=== PATIENT | female | born 1955 | race Hispanic/Latino ===

== ENCOUNTER 2021-04-07 13:27 | Inpatient (IN) | payer OTHER ==
[~2021-04-07] VITALS: Ht 170.2 cm; Wt 97.6 kg
[~2021-04-07 13:27] MED LIST: AMOX-429 PO; CIPR-278 PO; LOSA1TAB37 PO
[2021-04-07] MEDS ORDERED: 0.9%NACL 1000ML 1,000 ML IV ONE (14:00)
[2021-04-07] MEDS ORDERED: PHENAZOPYRIDINE HCL 200 MG TABLET PO SCH (14:00)
[2021-04-07] MEDS ORDERED: CEFTRIAXONE 1G VIAL IM SCH (14:00)
[2021-04-07 14:20] LABS: BASOPHILS % (AUTO) 0.4 % (0.0-5.0); EOSINOPHILS % (AUTO) 2.5 % (0.0-8.0); HEMATOCRIT 44.5 % (36-48); LYMPHOCYTES % (AUTO) 38.1 % (21.0-51.0); MEAN CORPUSCULAR HEMOGLOBIN 28.9 pg (27.0-33.0); MEAN CORPUSCULAR HGB CONC 32.4 g/dL (32.0-36.0); MEAN CORPUSCULAR VOLUME 89.2 fL (79-99); NEUTROPHILS % (AUTO) 50.6 % (40.0-77.0); PLATELET COUNT (AUTO) 215 K/uL (130-400); RED BLOOD CELL COUNT(AUTO) 4.99 MIL/uL (4.00-5.50); WHITE BLOOD COUNT (AUTO) 9.4 K/uL (4.8-10.8)
[2021-04-07 14:33] LABS: CREATININE 0.9 mg/dL (0.5-1.5); POTASSIUM 3.8 mmol/L (3.5-5.1)
[2021-04-07 14:38] LABS: ALBUMIN 3.7 g/dL (3.5-5.0); BILIRUBIN,TOTAL 0.4 mg/dL (0.2-1.0); CRP QUANTITATIVE 6.5 mg/L (0.00-9.0); TOTAL PROTEIN, SERUM 7.5 g/dL (6.0-8.3)
[2021-04-07] MEDS: CEFTRIAXONE 1G VIAL IV SCH ×2 (14:47→14:52)
[2021-04-07 14:48] LABS: APPEARANCE,URINE TURBID (CLEAR); BILIRUBIN,URINE NEGATIVE (NEGATIVE); COLOR,URINE RED (YELLOW); GLUCOSE, URINE (UA) NEGATIVE (NEGATIVE); KETONES,URINE NEGATIVE (NEGATIVE); LEUKOCYTE ESTERASE ,URINE NEGATIVE (NEGATIVE); NITRATE,URINE NEGATIVE (NEGATIVE); OCCULT BLOOD,URINE LARGE (NEGATIVE); PROTEIN,URINE >=300 mg/dL (NEGATIVE); UROBILINOGEN,URINE 0.2 mg/dL (0.2-1.0)
[2021-04-07 15:03] LABS: RBC,URINE TNTC /HPF (0-1)
[2021-04-07 15:04] LABS: WBC,URINE 0-1 /HPF (0-1)
[2021-04-07 15:05] LABS: BACTERIA,URINE Rare /HPF (None Seen); SQUAMOUS EPITHELIAL CELL,UR None Seen /HPF (0-2)
[2021-04-07] MEDS ORDERED: ONDANSETRON 4MG INJ IVP ONE (16:00)
[2021-04-07] MEDS ORDERED: MORPHINE 2 MG SYG IVP ONE (16:00)
[2021-04-07] MEDS ORDERED: HYDRALAZINE 20MG/ML VIAL IV PRN (18:30)
[2021-04-07] MEDS ORDERED: ZOLPIDEM TARTRATE 5 MG TAB PO PRN (18:30)
[2021-04-07] MEDS ORDERED: AMLODIPINE 5 MG TAB ONE (19:45)
[2021-04-07] MEDS: FAMOTIDINE 20MG TAB PO SCH (19:57)
[2021-04-07] MEDS: ATORVASTATIN 40 MG TABLET PO SCH (19:57)
[2021-04-07] MEDS: 0.9%NACL 1000ML 1,000 ML IV SCH (19:58)
[2021-04-07] MEDS: MORPHINE 4 MG SYG IM PRN (20:41)
[2021-04-07 23:50] VITALS: BP 108/42
[2021-04-08] MEDS ORDERED: [UNRECOGNIZED DRUG - OTHER] PO (01:09)
[2021-04-08] MEDS ORDERED: PRAV10TA39 PO (01:09)
[2021-04-08] MEDS ORDERED: ARDOSONS (01:09)
[2021-04-08] MEDS ORDERED: LOSA1TAB42 PO (01:09)
[2021-04-08] MEDS: ONDANSETRON 4MG INJ IV PRN (02:03)
[2021-04-08 04:00] VITALS: BP_SYST 108; BP_SYST 111; BP_DIAS 42; BP_DIAS 52
[2021-04-08] MEDS: 0.9%NACL 1000ML 1,000 ML IV SCH ×2 (05:13→14:30)
[2021-04-08 07:02] LABS: CHOLESTEROL 141 mg/dL (<200); HDL CHOLESTEROL 39 mg/dL (35-85); LDL DIRECT 76 mg/dL (0-99); TRIGLYCERIDES 213 mg/dL (30-200)
[2021-04-08] MEDS: AMLODIPINE 5 MG TAB PO SCH (09:00)
[2021-04-08 09:02] VITALS: BP 119/50
[2021-04-08] MEDS: FAMOTIDINE 20MG TAB PO SCH ×2 (10:18→21:29)
[2021-04-08 11:09] VITALS: BP 110/43
[2021-04-08] MEDS: CEFTRIAXONE 1G VIAL IV SCH (14:00)
[2021-04-08 16:24] VITALS: BP 113/54
[2021-04-08 16:25] LABS: HEMATOCRIT 39.3 % (36-48)
[2021-04-08] MEDS: ACETAMINOPHEN 325 MG TAB PO PRN (17:11)
[2021-04-08 20:00] VITALS: BP 118/48
[2021-04-08] MEDS: ATORVASTATIN 40 MG TABLET PO SCH (21:29)
[2021-04-08] MEDS: CEFTRIAXONE 1G VIAL IVP SCH (21:29)
[2021-04-08] MEDS: MORPHINE 4 MG SYG IM PRN (21:36)
[2021-04-08 21:56] LABS: HEMATOCRIT 36.5 % (36-48)
[2021-04-09] VITALS (7 sets, daily range): BP systolic 98–131; BP diastolic 42–65
[2021-04-09] MEDS: 0.9%NACL 1000ML 1,000 ML IV SCH ×4 (00:05→18:56)
[2021-04-09 04:47] LABS: HEMATOCRIT 36.8 % (36-48); MEAN CORPUSCULAR HGB CONC 31.5 g/dL (32.0-36.0); RED CELL DISTRIBUTION WIDTH 13.1 % (11.0-15.5); WHITE BLOOD COUNT (AUTO) 10.2 K/uL (4.8-10.8)
[2021-04-09 04:59] LABS: CREATININE 0.7 mg/dL (0.5-1.5); POTASSIUM 4.7 mmol/L (3.5-5.1)
[2021-04-09] MEDS ORDERED: IOHEXOL 350 MG/ML 100ML INFUS..BTL IV ONE (06:28)
[2021-04-09] MEDS: FAMOTIDINE 20MG TAB PO SCH ×2 (10:30→21:57)
[2021-04-09] MEDS: AMLODIPINE 5 MG TAB PO SCH (10:30)
[2021-04-09] MEDS: MORPHINE 4 MG SYG IV PRN (11:31)
[2021-04-09] MEDS: ONDANSETRON 4MG INJ IV PRN (11:37)
[2021-04-09] MEDS: CEFTRIAXONE 1G VIAL IVP SCH ×2 (21:57→22:06)
[2021-04-09] MEDS: ATORVASTATIN 40 MG TABLET PO SCH (21:57)
[2021-04-10] VITALS (22 sets, daily range): BP systolic 101–162; BP diastolic 43–85
[2021-04-10 04:33] LABS: HEMATOCRIT 36.5 % (36-48); MEAN CORPUSCULAR HGB CONC 32.1 g/dL (32.0-36.0); MEAN CORPUSCULAR VOLUME 90.3 fL (79-99); RED BLOOD CELL COUNT(AUTO) 4.04 MIL/uL (4.00-5.50); RED CELL DISTRIBUTION WIDTH 12.9 % (11.0-15.5); WHITE BLOOD COUNT (AUTO) 8.1 K/uL (4.8-10.8)
[2021-04-10 04:42] LABS: INR 0.97 (0.85-1.15); PROTHROMBIN TIME 10.6 SEC (9.6-11.6)
[2021-04-10 04:43] LABS: PARTIAL THROMBOPLASTIN TIME 25.6 SEC (26.3-35.5)
[2021-04-10 04:49] LABS: CREATININE 0.7 mg/dL (0.5-1.5); POTASSIUM 3.9 mmol/L (3.5-5.1)
[2021-04-10] MEDS: 0.9%NACL 1000ML 1,000 ML IV SCH ×2 (06:31→18:08)
[2021-04-10] MEDS: FAMOTIDINE 20MG TAB PO SCH ×2 (09:00→20:56)
[2021-04-10] MEDS: AMLODIPINE 5 MG TAB PO SCH (09:00)
[2021-04-10] MEDS: MORPHINE 4 MG SYG IV PRN (12:26)
[2021-04-10] MEDS: ONDANSETRON 4MG INJ IV PRN ×2 (12:26→18:42)
[2021-04-10] MEDS ORDERED: LACTATED RINGERS 1000ML 1,000 ML IV ONE (12:51)
[2021-04-10] MEDS ORDERED: PROPOFOL 10 MG/ML 20ML VIAL IV ONE (15:03)
[2021-04-10] MEDS ORDERED: LIDOCAINE PF 100MG/5ML (2%) SYRINGE 5ML ONE (15:03)
[2021-04-10] MEDS ORDERED: FENTANYL CITRATE PF 50 MCG/1 ML 2ML VIAL ONE (15:03)
[2021-04-10] MEDS ORDERED: SUCCINYLCHOLINE 200MG/10ML SYR ONE (15:03)
[2021-04-10] MEDS ORDERED: ROCURONIUM 10MG/1ML SYR 10 MG/ML ML ONE (15:21)
[2021-04-10] MEDS ORDERED: GLYCOPYRROLATE 1 MG/5 ML SYRINGE ONE (15:25)
[2021-04-10] MEDS ORDERED: MEPERIDINE-PF 25 MG/ML SYG ONE (16:11)
[2021-04-10] MEDS ORDERED: HYDROMORPHONE 0.5 MG SYG (0.5MG/0.5ML) IVP PRN (18:30)
[2021-04-10] MEDS ORDERED: OXYBUTYNIN 5 MG TAB.SR.24H PO SCH (20:30)
[2021-04-10] MEDS: ATORVASTATIN 40 MG TABLET PO SCH (20:57)
[2021-04-10] MEDS ORDERED: CEFTRIAXONE 1G VIAL IVP SCH (21:00)
[2021-04-11] MEDS: ACETAMINOPHEN 325 MG TAB PO PRN (02:25)
[2021-04-11] MEDS: 0.9%NACL 1000ML 1,000 ML IV SCH (02:30)
[2021-04-11 03:43] VITALS: BP 126/57
[2021-04-11 04:17] LABS: BASOPHILS % (AUTO) 0.2 % (0.0-5.0); EOSINOPHILS % (AUTO) 3.4 % (0.0-8.0); HEMATOCRIT 32.9 % (36-48); LYMPHOCYTES % (AUTO) 20.9 % (21.0-51.0); MEAN CORPUSCULAR HEMOGLOBIN 28.9 pg (27.0-33.0); MEAN CORPUSCULAR HGB CONC 31.6 g/dL (32.0-36.0); MEAN CORPUSCULAR VOLUME 91.4 fL (79-99); MONOCYTES % (AUTO) 9.4 % (3.0-13.0); NEUTROPHILS % (AUTO) 65.6 % (40.0-77.0); PLATELET COUNT (AUTO) 186 K/uL (130-400); RED CELL DISTRIBUTION WIDTH 12.8 % (11.0-15.5); WHITE BLOOD COUNT (AUTO) 9.4 K/uL (4.8-10.8)
[2021-04-11 04:36] LABS: CREATININE 0.8 mg/dL (0.5-1.5); POTASSIUM 3.9 mmol/L (3.5-5.1)
[2021-04-11 08:00] VITALS: BP 132/39
[2021-04-11] MEDS ORDERED: ZOSYN 3.375GM +NS 50ML IV SCH (11:30)
[2021-04-11] MEDS: FAMOTIDINE 20MG TAB PO SCH ×2 (11:56→20:21)
[2021-04-11] MEDS: ZOSYN 3.375GM+NS 50ML 50 ML IV SCH ×2 (11:56→20:25)
[2021-04-11] MEDS: AMLODIPINE 5 MG TAB PO SCH (11:56)
[2021-04-11 12:03] VITALS: BP 147/42
[2021-04-11 16:00] VITALS: BP 111/60
[2021-04-11] MEDS: OXYBUTYNIN 5 MG TAB.SR.24H PO SCH (17:04)
[2021-04-11] MEDS: ATORVASTATIN 40 MG TABLET PO SCH (20:21)
[2021-04-11 21:20] VITALS: BP 124/65
[2021-04-11 23:47] VITALS: BP 130/57
[2021-04-12] MEDS: ACETAMINOPHEN 325 MG TAB PO PRN (02:31)
[2021-04-12 03:18] VITALS: BP 132/61
[2021-04-12] MEDS: ZOSYN 3.375GM+NS 50ML 50 ML IV SCH ×2 (04:58→12:03)
[2021-04-12 08:00] VITALS: BP 132/73
[2021-04-12] MEDS ORDERED: OXYBUTYNIN 5 MG TAB.SR.24H PO SCH (09:00)
[2021-04-12] MEDS: FAMOTIDINE 20MG TAB PO SCH (09:58)
[2021-04-12] MEDS: OXYBUTYNIN 5 MG TAB.SR.24H PO SCH (09:58)
[2021-04-12] MEDS: AMLODIPINE 5 MG TAB PO SCH (09:58)
[2021-04-12 11:59] VITALS: BP 142/67
[2021-04-12 16:00] VITALS: BP 150/50
== END 2021-04-12 20:00 | disposition home or self-care (01) | DRG 669 ==
LOC: EDH 13:27 → EDHIP 18:28 → OBSVTOIN 18:28 → 3BH 04-08 00:49
PROVIDERS: ADMIT Internal Medicine Pulmonary Disease; ATTEND Internal Medicine Pulmonary Disease
PROC: 0T5B8ZZ Destruction of Bladder, Via Natural or Artificial Opening Endoscopic (ICD-10-PCS; 2021-04-10)
PROC: 0TCB8ZZ Extirpation of Matter from Bladder, Via Natural or Artificial Opening Endoscopic (ICD-10-PCS; 2021-04-10)
PROC: 0TBB8ZX Excision of Bladder, Via Natural or Artificial Opening Endoscopic, Diagnostic (ICD-10-PCS; principal; 2021-04-10 15:27)
DX: N32.89 Other specified disorders of bladder (principal); Z16.12 Extended spectrum beta lactamase (ESBL) resistance; N13.6 Pyonephrosis; K57.90 Diverticulosis of intestine, part unspecified, without perforation or abscess without bleeding; E78.5 Hyperlipidemia, unspecified; N32.3 Diverticulum of bladder; B96.20 Unspecified Escherichia coli [E. coli] as the cause of diseases classified elsewhere; N30.91 Cystitis, unspecified with hematuria; R31.0 Gross hematuria; E78.00 Pure hypercholesterolemia, unspecified; I10 Essential (primary) hypertension; E66.01 Morbid (severe) obesity due to excess calories; Z68.33 Body mass index [BMI] 33.0-33.9, adult; Z90.710 Acquired absence of both cervix and uterus; Z90.49 Acquired absence of other specified parts of digestive tract; Z87.891 Personal history of nicotine dependence; Z79.899 Other long term (current) drug therapy; Z82.49 Family history of ischemic heart disease and other diseases of the circulatory system
CPT/HCPCS: 36415; 74176; 74178; 76775; 80048; 80053; 80061; 81001; 83605; 85014; 85018; 85025; 85027; 85610; 85730; 86140; 86850; 86900; 86901; 87040; 87077; 87088; 87186; 93005; 97039; A4354; G0378; J0330; J0696; J1170; J2001; J2175; J2270; J2405; J2543; J2704; J3010; J3490; J7030; J7120; Q9967

== ENCOUNTER → 2024-06-11 | Outpatient (CLI) | payer OTHER ==
[~2024-06-11] MED LIST changes: -AMOX-429 PO; -CIPR-278 PO; +IOHEXOL-350 75 ML VIAL IV ONE; -LOSA1TAB37 PO; +LOSA1TAB42 PO; +PRAV10TA39 PO
--- NOTE | 2024-06-11 11:26 | HMCIMG ---
CT ABDOMEN/PELVIS W/WO CONTRAS HISTORY: UTI COMPARISON: 04/09/2021 TECHNIQUE: Multiple sequential axial images of the abdomen and pelvis were obtained from the dome of the diaphragm through symphysis pubis. Patient was given 75 cc of Omnipaque through intravenous route. Oral contrast was given. FINDINGS: No pleural effusion is seen bilaterally. There is no evidence of parenchymal disease or pulmonary nodule of the visualized lower lungs. Degenerative changes of the thoracolumbar spine are present. The heart is not enlarged. A small hiatal hernia is seen. Post cholecystectomy changes are seen. The liver, spleen, adrenal glands and pancreas are unremarkable. There is no evidence of hydronephrosis bilaterally. No evidence of renal stone is seen. Fecal material is seen in the colon. There is diverticulosis. There are normal size retroperitoneal and mesenteric lymph nodes. No ascites is seen. Atherosclerotic changes are present. Pelvic sidewalls are symmetric bilaterally. Bladder is well distended without wall thickening. If there is clinical suspicion for cystitis, urinalysis correlation may be helpful. IMPRESSION: 1. Diverticulosis. No bowel obstruction is seen. If there is clinical suspicion for cystitis, urinalysis correlation may be helpful. CT was performed with one or more following dose reduction techniques: automated exposure control, adjustment of the mA and kv according to patient's size, or use of a iterative reconstruction technique.
== END | disposition home or self-care (01) ==
LOC: RAH 09:48
PROVIDERS: ATTEND Family Medicine
DX: K57.90 Diverticulosis of intestine, part unspecified, without perforation or abscess without bleeding (principal); K44.9 Diaphragmatic hernia without obstruction or gangrene; N39.0 Urinary tract infection, site not specified; M47.815 Spondylosis without myelopathy or radiculopathy, thoracolumbar region; R10.9 Unspecified abdominal pain; Z90.49 Acquired absence of other specified parts of digestive tract; I70.8 Atherosclerosis of other arteries; N32.89 Other specified disorders of bladder
CPT/HCPCS: 74178; Q9967